=== PATIENT | female | born 1940 | race Caucasian/White ===

== ENCOUNTER → 2017-01-01 | Outpatient (REF) ==
[~2017-01-01] MED LIST: IBUPROFEN200 M1 PO
== END ==
LOC: ZLAB.WCH 12:05
DX: Z01.89 Encounter for other specified special examinations (principal)

== ENCOUNTER → 2018-06-14 | Outpatient (REF) ==
[2018-06-14 17:05] LABS: THYROID STIMULATING HORMONE 1.07 uIU/mL (0.465-4.680)
== END ==
LOC: ZLAB.WCH 16:10
PROVIDERS: Internal Medicine
DX: Z01.89 Encounter for other specified special examinations (principal)

== ENCOUNTER → 2019-01-09 | Outpatient (REF) | LOC: ZLAB.WCH 19:26 | DX: Z01.89 Encounter for other specified special examinations (principal) ==

== ENCOUNTER 2024-01-14 15:49 | Inpatient (IN) | payer MEDICARE, BC ==
[~2024-01-14] VITALS: Ht 152.4 cm; Wt 52.9 kg
[~2024-01-14 15:49] MED LIST changes: +NATURAL E400 IU PO
[2024-01-15] MEDS ORDERED: SEROQUEL 2525 MG/TAB PO (12:58)
[2024-01-15] MEDS ORDERED: TYLENOL 500MG500 MG PO (12:58)
[2024-01-15] MEDS ORDERED: CELEBREX 200MG200 MG PO (12:59)
[2024-01-15] MEDS ORDERED: ASPI325T6 PO (12:59)
[2024-01-15] MEDS ORDERED: ROXICODONE 55 MG/TAB PO (13:01)
[2024-01-15] MEDS ORDERED: Naloxone 0.4 MG/ML VIAL IV PRN (14:30)
[2024-01-15] MEDS ORDERED: Polyethylene Glycol 3350 17 GM PDS PO PRN (14:30)
[2024-01-15] MEDS ORDERED: Docusate Sodium 100 MG CAP PO PRN (14:30)
[2024-01-15] MEDS ORDERED: Acetaminophen 325 MG TAB PO PRN (14:30)
[2024-01-15] MEDS ORDERED: Sennosides/Docusate 8.6-50 MG TAB PO PRN (14:30)
--- NOTE | 2024-01-15 15:03 | NUR ---
New pt admitted from surgical floor, s/p L hip fx, per marcella on 01/13. Pt has a L hip incision that is covered by gauze & tegaderm that is CDI. Pt ambulated to from surgical room to [facility]. She is a/o x 4, pleasant. Skin is intact. Pt has her purse at the bedside. Bilateral hearing aids placed in pt's purse at her request. Pt has family members at the bedside. Pt has dual INT's in L. wrist & R. wrist that were placed during surgery per the pt. Pt currently has 1/2 L bag of NS bolus running. Orientation provided to room/unit. Other needs denied. Call light in reach. Chair alarm on.
[2024-01-15 17:05] VITALS: BP 159/90; PULSE 77; TEMP 97.4
[2024-01-15 17:10] VITALS: BP_SYST 159
[2024-01-15] MEDS ORDERED: Acetaminophen 500 MG TAB PO SCH (17:15)
[2024-01-15] MEDS ORDERED: oxyCODONE 5 MG TAB PO PRN (17:15)
--- NOTE | 2024-01-15 17:45 | NUR ---
Pt sitting up in recliner eating dinner independently. Scheduled Tylenol given. Pt denies the need for additional pain medication at this time. L hip dressing remains CDI. Fluid bolus completed approx 15 minutes ago (ordered prior to Surg DC). Other needs denied. Call light in reach. Chair alarm on.
[2024-01-15 19:22] VITALS: BP_SYST 159
[2024-01-15 20:50] VITALS: BP 134/79; BP_SYST 139
[2024-01-15] MEDS ORDERED: Celecoxib 200 MG CAP PO SCH (21:00)
[2024-01-15] MEDS ORDERED: QUEtiapine 25 MG TAB PO SCH (21:00)
--- NOTE | 2024-01-15 21:00 | NUR ---
PT SITTING UP IN RECLINER. A&O X4 BUT FORGETFUL. ASSISTED PT TO BR W/ WALKER. PT ABLE TO MANAGE TOILETING TASKS. ASSISTED BACK TO RECLINER. INT RT F/A INFILTRATED. RESTARTED IN RT UPPER F/A #22G. CAHIR ALARM SET. CALL LIGHT IN REACH.
--- NOTE | 2024-01-16 04:30 | NUR ---
ASSSITED PT TO BR. INDEPENDENT TOILETING ROUTINE. NO NEEDS AT THIS TIME.
[2024-01-16 05:20] VITALS: BP 120/74; PULSE 70; TEMP 98.4
[2024-01-16 06:50] LABS: BASO % 0.6 % (0.0-2.0); EOS # 0.5 K/mm3 (0.0-0.7); EOS % 9.4 % (0.0-4.0); GRAN % 58.8 % (42.2-75.2); HEMOGLOBIN 10.5 g/dl (12.5-16.0); LYMPH # 1.1 K/mm3 (1.2-3.4); MEAN CELL VOLUME 95 fl (80.0-100.0); MEAN CORPUSCULAR HEMOGLOBIN 32 pg (27-31); MEAN CORPUSCULAR HGB CONC 33 g/dl (33.0-37.0); MEAN PLATELET VOLUME 11.1 fl (7.4-10.4); MONO # 0.5 K/mm3 (0.1-0.6); MONO % 8.8 % (1.7-9.3); PLATELET COUNT 174 K/mm3 (130-400); RED BLOOD COUNT 3.32 M/mm3 (4.10-5.30); REDCELL DISTRIBUTION WIDTH-CV 12.4 % (11.5-14.5)
[2024-01-16 06:55] LABS: CALCIUM 8.3 mg/dL (8.4-10.2); CREATININE, serum 0.75 mg/dL (0.57-1.11); POTASSIUM 3.7 mmol/L (3.5-4.5)
[2024-01-16 06:57] LABS: HEMATOCRIT 31.5 % (37.0-47.0)
[2024-01-16 07:15] VITALS: BP_SYST 120
--- NOTE | 2024-01-16 07:16 | NUR ---
Shift report received from night RN. No events reported overnight. Pt up to ambulate to the bathroom w/ ALODIZE MACHINE OPERATOR assistance.
--- NOTE | 2024-01-16 08:50 | NUR ---
Pt sitting up in recliner after eating breakfast independently. Pt reporting L hip pain. Scheduled Tylenol given. Pt denies the need for additional pain medication at this time. Other needs denied. Call light in reach. Chair alarm on.
[2024-01-16] MEDS ORDERED: cefTRIAXone 1 G in Water For Injection,Sterile 10 ML IV SCH (09:00)
--- NOTE | 2024-01-16 09:43 | NUR ---
Pt sitting up in recliner watching tv. Pt denies any needs at this time. Call light in reach. Chair alarm on.
--- NOTE | 2024-01-16 10:31 | NUR ---
Pt up in recliner. Denies any needs. Denies pain. Call light in reach. Chair alarm on.
--- NOTE | 2024-01-16 15:32 | NUR ---
Pt up to ambulate from recliner to bathroom. Gait steady w/ FWW. Pt reporting L hip pain at 4/10 & stiffness. Scheduled Tylenol given.
--- NOTE | 2024-01-16 15:56 | NUR ---
SW met with patient, daughter (Annette Hernández [phone]) and granddaughter were present. Patient reports that she lives home alone in [place], and has been independent with ADLs and no current DMEs utilized. Patient verified that her PCP is REHAN Jasmine and pharmacy of choice is [facility]. Patient informed SW that she does have DPOA and filed. Discharge plan: tbd
--- NOTE | 2024-01-16 17:36 | NUR ---
Pt sitting up in recliner watching tv. Pt refused her dinner tray stating that it "doesn't look appetizing". Pt declined ordering a new tray. Pt denies other needs at this time. Call light in reach. Chair alarm on.
[2024-01-16 17:37] VITALS: BP 142/82; PULSE 75; TEMP 98
[2024-01-16 19:00] VITALS: BP_SYST 142
--- NOTE | 2024-01-16 20:00 | NUR ---
UPON SHIFT ASSESSMENT, SEUN WAS IN RECLINER AND CHEERFUL AXO X4. HER LT HIP DRESSING IS CDI AND DISTAL PULSES PALPABLE, SKIN WNL. SHE DENIES PAIN OR SOA AND STATES NO NEEDS AT THIS TIME. AMBULATED TO RESTROOM WITH WALKER- GAIT SLIGHTLY IMPAIRED AND WEAK. VS WNL. BED ALARM NARCOTICS AND/OR VICE DETECTIVE LIGHT WITHIN REACH.
--- NOTE | 2024-01-16 22:03 | NUR ---
REMOVED TEDHOSE SKIN WNL
[2024-01-17 06:02] VITALS: BP 144/85; PULSE 80; TEMP 97.5
--- NOTE | 2024-01-17 06:18 | NUR ---
REAPPLIED TEDHOSE. SEUN AMBULATED TO BATHROOM WITH WALKER, GAIT WEAK BUT NORMAL. STATES SHE IS DOING AND FEELING BETTER. STATES NO NEEDS AT THIS TIME.
[2024-01-17 06:48] VITALS: BP_SYST 144
--- NOTE | 2024-01-17 06:49 | NUR ---
Shift report received from night RN. No events reported overnight. Pt awake & sitting up in recliner. She reports L hip pain 03/08. Will give scheduled Tylenol. Pt denies other needs. Call light in reach. Chair alarm on.
--- NOTE | 2024-01-17 10:04 | NUR ---
L hip gauze/tegaderm removed. No drainage. Steri strips x [address] Incision w/o redness, drainage. Incision ANNA.
--- NOTE | 2024-01-17 11:09 | NUR ---
Has lack of transportation kept you from medical appts, meetings, work, or from getting things needed for daily living? no How often do you feel lonely or isolated from those around you? never Over the past 5 days, how much of the time has pain made it hard for you to sleep? occasionally Over the past 5 days, how often have you limited your participation in therapy due to pain? rarely/not at all Over the past 5 days, how often have you limited your day-to-day activities because of pain? rarely/not at all Have you had 2 or more falls in the past year or any fall with an injury? yes Did you have major surgery during the 100 days prior to admission? yes
--- NOTE | 2024-01-17 12:04 | NUR ---
Pt sitting up in recliner eating lunch indepedently w/ daughter & granddaughter. Denies any needs at this time. Call light in reach. Chair alarm on.
--- NOTE | 2024-01-17 14:20 | NUR ---
recording studio set up worker met with patient to introduce herself and assess if there were any needs. Pt reports she has no needs at this time. SW provided her phone number to contact if her or her family need anything from SW. Pt went on to tell a story about how she arrived to the ER then [facility]. SW dismissed herself as OT John was waiting to work with pt. Discharge Plan: re-eval
--- NOTE | 2024-01-17 15:21 | NUR ---
Pt sitting up in recliner. Hospitalist PA at beside.
--- NOTE | 2024-01-17 16:20 | NUR ---
Pt sitting up in recliner visiting w/ her daughter. Scheduled Tylenol given approx 30 minutes ago. Pt denies the need for additional pain medication. Denies other needs. Call light in reach. Chair alarm on.
[2024-01-17 17:34] VITALS: BP 156/90; PULSE 86; TEMP 97.8
[2024-01-17 18:49] VITALS: BP_SYST 156
--- NOTE | 2024-01-17 20:10 | NUR ---
PT A&O X4 SITTING UP IN RECLINER. DENYING PAIN AT THIS TIME. LEFT HIP INCISION W/ STERI STRIPS & AMBULANCE MECHANIC, EDGES WELL APPROX. PT AMBULATED TO BED WITH STANDYBY ASSIST. DENYING FURTHER NEEDS. CALL LIGHT IN REACH & FALL PRECAUTIONS IN PLACE.
--- NOTE | 2024-01-17 23:41 | NUR ---
PT RESTING IN BED WITH UNLABORED RESP. CALL LIGHT IN REACH & FALL PRECAUTIONS IN PLACE
[2024-01-18 05:25] VITALS: BP 147/83; PULSE 75; TEMP 97.7
[2024-01-18 07:00] VITALS: BP_SYST 147
--- NOTE | 2024-01-18 09:18 | NUR ---
PT UP AND WORKING WITH THERAPY PER CAREPLAN. PT AMBULATES WITH SBA X1. EATING AND DRINKING WITH NO NAUSEA OR VOMITING. DOWNSTAIRS WITH THERAPY AT THIS TIME UPDATED FAMILY ON DAILY SCHEDULE VIA PHONE CALL FROM DAUGHTER.
--- NOTE | 2024-01-18 13:31 | NUR ---
dock worker met with pt to assess for any needs or concerns for patient. She had her daughter at bedside and reports no SW needs at this time. SW discussed the 9am team meeting and the need for a family meeting. Pt and daughter were agreeable to tomorrow at 10:30am. SW informed IPR Director Mabel verbally. SW notes pt needs a FWW and gait belt. Pt informed SW that she is moving into a one bedroom apartment and is wanting to get home by Wednesday. SW informed her to bring this up to the team tomorrow. ANTHONY emailed [facility] and inquired about if a gait belt is covered by insurance. Discharge Plan: re-eval
--- NOTE | 2024-01-18 15:04 | NUR ---
Admission QIM scores were reviewed by the team. Code of 4 chosen for toileting hygiene was determined by team discussion to be the most usual performance for this patient during the discharge assessment period. Code of 4 chosen for toilet transfers was determined by team discussion to be the most usual performance for this patient during the discharge assessment period. Code of 4 chosen for lower body dressing was determined by team discussion to be the most usual performance before interventions for this patient during the assessment period. Code of 4 chosen for sit to lying was determined by team discussion to be the most usual performance before interventions for this patient during the assessment period. Code of 4 chosen for lying to sitting side of bed was determined by team discussion to be the most usual performance before interventions for this patient during the assessment period. Code of 4 chosen for sit to stand was determined by team discussion to be the most usual performance for this patient during the discharge assessment period. Code of 4 chosen for walking 10 feet was determined by team discussion to be the most usual performance for this patient during the discharge assessment period.--Mabel Delgado, PD
[2024-01-18 17:13] VITALS: BP 136/82; PULSE 84; TEMP 98.1
--- NOTE | 2024-01-18 18:45 | NUR ---
PATIENT SITTING UP IN BEDSIDE RECLINER WATCHING LAPTOP WITH NO ACUTE DISTRESS NOTED. PATIENT ON ROOM AIR. INT TO RIGHT FOREARM INTACT WITH NO COMPLICATIONS NOTED. PATIENT DENIES ANY NEEDS AT THIS TIME. RECLINER LOCKED AND CALL LIGHT WITHIN REACH. CHAIR ALARM ON.
[2024-01-18 19:00] VITALS: BP_SYST 136
--- NOTE | 2024-01-18 21:12 | NUR ---
PATEINT RESTING IN BED WITH TV ON WITH NO ACUTE DISTRESS NOTED. PATIENT ON ROOM AIR. INT TO RIGHT FOREARM INTACT WITH NO COMPLICATIONS NOTED. MEDICATION ADMINISTRATION COMPLETED AT THIS TIME. PATIENT TOLERATED WELL. ALL NEEDS MET. BED IN LOW POSITION WITH WHEELS LOCKED WITH RIALS UP X3 AND CALL LIGHT WITHIN REACH. BED ALARM ON.
[2024-01-19 05:39] VITALS: BP 113/87; PULSE 75; TEMP 97.9
[2024-01-19 07:00] VITALS: BP_SYST 113
--- NOTE | 2024-01-19 09:00 | NUR ---
Pt. sitting up in chair. Pt. is alert and oriented but is forgetfull. INT to rt. forearm patent. Pt. reports pain to lt. hip, see mar. Pt. denies further needs, call light within reach.
--- NOTE | 2024-01-19 16:27 | NUR ---
tool salvage worker attended team conference regarding patient. The team advised patient could discharge on Wednesday afternoon and would need a FWW. IPR team reccomended home with home health PT/OT/ST. ANTHONY attended family meeting with IPR staff. Patient and daughter, Annette report they are moving things this weekend to patient's new apartment in [place]. They report she could move in Wednesday. Patient and dtr informed that she can discharge Wednesday afternoon with HH. SW discussed the FWW reccomendation and they were agreeable to this. Life Alert, cameras in home, and Meals on Wheels were all resources discussed to support pt's independence at home. SW provided pt and daughter with Medicare.gov list of HH agencies in [place]. They chose [facility] and SW faxed this. SW inquired if pt needed assistance finding Life Alert, cameras, tub transfer bench, or Meals on Wheels. Pt declines Meals on Wheels and daughter reports she will cook for patient. Daughter felt comfortable ordering all needed items for a safe return home. SW was informed daughter requested [facility] service. ANTHONY informed [facility] who will meet with daughter and pt. ANTHONY called messi Bryant and informed her of this. She reports she recieved a call from a [facility] and this was accomplished. ANTHONY spoke with Rober at [facility] who reports they can accept pt. Discharge Plan: Wednesday with [facility] services
[2024-01-19 16:42] VITALS: BP 126/78; PULSE 92; TEMP 97.4
[2024-01-19 19:00] VITALS: BP_SYST 126
--- NOTE | 2024-01-19 21:00 | NUR ---
PT WAS IN RECLINER UNTIL RECENTLY. NOW IN BED. A&O BUT FORGETFUL. DENIES PAIN. SEE COMPLETED SHIFT ASSESSMENT. BED ALARM SET. CALL LIGHT INR REACH.
[2024-01-20 06:00] VITALS: BP 127/77; PULSE 79; TEMP 98.9
[2024-01-20 07:49] VITALS: BP_SYST 127
--- NOTE | 2024-01-20 13:21 | NUR ---
park worker faxed updates to [facility]. Discharge Plan: Wednesday, Home with [facility] and arely carrero
[2024-01-20 17:08] VITALS: BP 149/79; PULSE 86; TEMP 97.7
[2024-01-20 19:00] VITALS: BP_SYST 149
--- NOTE | 2024-01-20 19:30 | NUR ---
RECEIVED CHANGE OF SHIFT REPORT FROM DAY SHIFT NURSE. PATIENT UP IN CHAIR, EXIT ALARM ON, CALL LIGHT IN REACH. NO NEEDS REPORTED AT TIME OF REPORT.
[2024-01-21 06:00] VITALS: BP 143/78; PULSE 68; TEMP 97.5
[2024-01-21 06:45] LABS: BASO # 0.1 K/mm3 (0.0-0.2); BASO % 1.2 % (0.0-2.0); EOS # 0.3 K/mm3 (0.0-0.7); EOS % 6.2 % (0.0-4.0); GRAN # 3.4 K/mm3 (1.4-6.5); GRAN % 65.2 % (42.2-75.2); HEMOGLOBIN 12.4 g/dl (12.5-16.0); LYMPH % 18.3 % (20.0-51.0); MEAN CELL VOLUME 94 fl (80.0-100.0); MEAN CORPUSCULAR HEMOGLOBIN 32 pg (27-31); MEAN CORPUSCULAR HGB CONC 34 g/dl (33.0-37.0); MONO # 0.5 K/mm3 (0.1-0.6); MONO % 8.7 % (1.7-9.3); PLATELET COUNT 259 K/mm3 (130-400); REDCELL DISTRIBUTION WIDTH-CV 12.4 % (11.5-14.5)
[2024-01-21 06:47] LABS: HEMATOCRIT 36.5 % (37.0-47.0)
[2024-01-21 07:05] LABS: CALCIUM 8.9 mg/dL (8.4-10.2); CREATININE, serum 0.78 mg/dL (0.57-1.11); POTASSIUM 4.1 mmol/L (3.5-4.5)
[2024-01-21 07:15] VITALS: BP_SYST 143
--- NOTE | 2024-01-21 07:16 | NUR ---
Shift report received from night RN. No events reported overnight. Pt up in recliner eating breakfast independently. Denies needs at this time. Call light in reach. Fall precautions in place.
--- NOTE | 2024-01-21 07:30 | NUR ---
CHANGE OF SHIFT REPORT GIVEN TO DAY SHIFT NURSEDEVON.
--- NOTE | 2024-01-21 08:13 | NUR ---
Pt sitting up in recliner after eating breakfast independently. Pt reports sleeping well overnight. Had a Lg BM this morning. Denies pain/discomfort at this time. Other needs denied. Call light in reach. Chair alarm on.
--- NOTE | 2024-01-21 12:27 | NUR ---
Pt sitting up in recliner after eating 90% of lunch independently. Pt denies pain/discomfort. Denies other needs. Call light in reach. Chair alarm on.
--- NOTE | 2024-01-21 13:01 | NUR ---
Pt ambulating off unit w/ PT.
--- NOTE | 2024-01-21 15:45 | NUR ---
Manager Intermediate met with patient to check in before the weekend. Patient is getting her hair curled and stated this is a very good hospital. Patient also stated she was able to secure a one level apartment and is happy about this. Patient plans to discharge Wednesday with [facility]
[2024-01-21 17:52] VITALS: BP 136/79; PULSE 76; TEMP 97.6
[2024-01-21 19:00] VITALS: BP_SYST 136
--- NOTE | 2024-01-21 19:27 | NUR ---
Patient sitting up in a chair, watching TV, assessed at this time, see shift assessment, steristrips to left hip CDI, denies further needs, call light and personal items within reach, fall precautions in place.
[2024-01-22 06:04] VITALS: BP 136/81; PULSE 71; TEMP 97.9
[2024-01-22 08:27] VITALS: BP_SYST 136
--- NOTE | 2024-01-22 09:47 | NUR ---
Patient awake, alert and oriented. Assisted to bathroom, x1 standby with FWW, steady on feet. Sitting in bed, denies pain, eating breakfast. Call light within reach.
--- NOTE | 2024-01-22 17:45 | NUR ---
Patient agreeable throughout the day, able to therapy. Discussing future plans once discharging. Talked to family several times throughout the day. In chair, denies needs at this time. Call light within reach.
[2024-01-22 17:48] VITALS: BP 130/76; PULSE 82; TEMP 98.4
[2024-01-22 19:00] VITALS: BP_SYST 130
--- NOTE | 2024-01-22 21:10 | NUR ---
Assisted to bathroom with FWW, with steady gait, voided without any difficulty, noted excoriation to bottom, applied barrier cream, assisted back to bed, assessed at this time, see shift assessment, reports pain isn't bad, PS of 3/10, denies further needs, call light and personal items within reach, will continue to monitor.
[2024-01-23 05:31] VITALS: BP 149/78; PULSE 83; TEMP 97.6
[2024-01-23 06:46] VITALS: BP_SYST 149
--- NOTE | 2024-01-23 10:53 | NUR ---
Pt ambulating in the hallway, initially c/o left inner groin pain, improved after walk. Denies need for PRN. Steady on feet, x1 SBA with walker. Back to chair, call light within reach, chair alarm on.
[2024-01-23 18:20] VITALS: BP 142/88; PULSE 93; TEMP 97.5
[2024-01-23 19:13] VITALS: BP_SYST 142
--- NOTE | 2024-01-23 21:10 | NUR ---
Assessed at this time, see shift assessment, doing well and is hoping to discharge home tommorow, reports pain at 2/10, denies the need for pain meds, denies further needs, call light and personal items within reach, will continue to monitor.
--- NOTE | 2024-01-24 04:24 | NUR ---
Patient resting in bed, eyes closed, looks comfortable.
[2024-01-24 06:26] VITALS: BP 147/80; PULSE 78; TEMP 98.2
[2024-01-24 07:04] VITALS: BP_SYST 147
--- NOTE | 2024-01-24 07:05 | NUR ---
Shift report received from night RN. No events reported overnight. Pt sitting up in recliner watching tv. Denies pain/discomfort. Denies any needs. Call light in reach. Fall precautions in place. Pt discharging home today. She is expecting her daughter to arrive around 1600 today.
--- NOTE | 2024-01-24 07:17 | NUR ---
Pt supervised as she stood from recliner to FWW to ambulate to the bathroom. L hip incision PUBLICATIONS PRODUCTION SUPERVISOR w/ 2 steristrips CDI. Pt denies pain/discomfort. Scheduled Tylenol given. Other needs denied. Call light in reach. Chair alarm on.
--- NOTE | 2024-01-24 08:44 | NUR ---
Pt up to ambulate off unit w/ OT.
[2024-01-24] MEDS ORDERED: TYLENOL 500MG500 MG PO (10:11)
[2024-01-24] MEDS ORDERED: ASPI325T6 PO (10:13)
[2024-01-24] MEDS ORDERED: ROXICODONE 55 MG/TAB PO (10:14)
--- NOTE | 2024-01-24 12:11 | NUR ---
Pt sitting up in recliner watching tv. Lunch tray is pending. Pt denies pain/discomfort. Denies any needs. Call light in reach. Chair alarm is on.
--- NOTE | 2024-01-24 13:47 | NUR ---
Lead Cook gave referral and order for front wheeled walker to [facility]. Walker will be delivered to patient's room prior to discharge. SW met with patient to provide and review IM. Patient verbalized understanding and provided signature. SW placed form in chart and provided copy to patient. ANTHONY contacted Rober at [facility] and faxed discharge orders.
--- NOTE | 2024-01-24 17:18 | NUR ---
1640 - Pt's daughter here to pick pt up for DC home. DC Summary reviewed w/ the pt & daughter. They had no further questions. Belongings were gathered by nursing staff & pt earlier in the shift. Pt had laptop, cell phone, purse in hand at [place]. Pt ambulated off unit w/ TANK FARM OPERATOR & RN to vehicle & seatbelted for ride home.
[2024-01-25] MEDS ORDERED: TYLENOL 500MG500 MG PO (08:10)
--- NOTE | 2024-01-25 13:21 | NUR ---
Discharge QIM scores were reviewed by the team. Code of 6 chosen for walking 50 feet w/ 2 turns was determined by team discussion to be the most usual performance before interventions for this patient during the discharge assessment period.--Mabel Delgado, PD
== END 2024-01-24 16:40 | disposition home health service (06) | DRG 560 ==
PROVIDERS: Internal Medicine; ADMIT Physical Medicine & Rehabilitation Sports Medicine
DX: S72.002D Fracture of unspecified part of neck of left femur, subsequent encounter for closed fracture with routine healing (principal); N39.0 Urinary tract infection, site not specified; B96.20 Unspecified Escherichia coli [E. coli] as the cause of diseases classified elsewhere; R26.89 Other abnormalities of gait and mobility; W01.0XXD Fall on same level from slipping, tripping and stumbling without subsequent striking against object, subsequent encounter; Z79.82 Long term (current) use of aspirin; Z79.899 Other long term (current) drug therapy; Z85.038 Personal history of other malignant neoplasm of large intestine; Z79.891 Long term (current) use of opiate analgesic; Z74.09 Other reduced mobility; D64.89 Other specified anemias; I10 Essential (primary) hypertension; L85.3 Xerosis cutis
CPT/HCPCS: J0696